=== PATIENT | male | born 1955 | race Caucasian/White ===

== ENCOUNTER → 2017-03-27 | Outpatient (CLI) | payer BC | END | disposition home or self-care (01) | LOC: GMAM 14:25 | PROVIDERS: ATTEND Family Medicine | DX: Z12.5 Encounter for screening for malignant neoplasm of prostate (principal); I10 Essential (primary) hypertension ==

== ENCOUNTER → 2017-11-22 | Outpatient (CLI) | payer SELFPAY | END | disposition home or self-care (01) | LOC: GMAM 10:28 | PROVIDERS: ATTEND Family Medicine | DX: R53.83 Other fatigue (principal) ==

== ENCOUNTER → 2017-12-29 | Outpatient (CLI) | payer OTHER | LOC: GMAM 11:26 | PROVIDERS: ATTEND Family Medicine | DX: E29.1 Testicular hypofunction (principal) ==

== ENCOUNTER → 2018-02-13 | Outpatient (CLI) | payer OTHER | END | disposition home or self-care (01) | LOC: GMAJS 12:02 | PROVIDERS: ATTEND Family Medicine | DX: M54.5 Low back pain (principal) ==

== ENCOUNTER → 2018-02-16 | Outpatient (CLI) | payer OTHER | LOC: GMAM 11:25 | PROVIDERS: ATTEND Family Medicine | DX: R06.02 Shortness of breath (principal) ==

== ENCOUNTER → 2018-05-17 | Outpatient (CLI) | payer OTHER | LOC: GMAM 10:58 | PROVIDERS: ATTEND Family Medicine | DX: F32.89 Other specified depressive episodes (principal); Z12.5 Encounter for screening for malignant neoplasm of prostate ==

== ENCOUNTER → 2018-07-26 | Outpatient (CLI) | payer OTHER | LOC: GMAM 11:07 | PROVIDERS: ATTEND Family Medicine | DX: F32.89 Other specified depressive episodes (principal) ==

== ENCOUNTER → 2018-11-16 | Outpatient (CLI) | payer OTHER | LOC: GMAM 10:34 | PROVIDERS: ATTEND Family Medicine | DX: F32.89 Other specified depressive episodes (principal) ==

== ENCOUNTER → 2019-05-27 | Outpatient (CLI) | payer OTHER | LOC: GMAM 10:33 | PROVIDERS: ATTEND Family Medicine | DX: F32.89 Other specified depressive episodes (principal); I10 Essential (primary) hypertension; Z12.5 Encounter for screening for malignant neoplasm of prostate ==

== ENCOUNTER → 2020-04-01 | Outpatient (CLI) | payer OTHER | LOC: GMAM 11:44 | PROVIDERS: ATTEND Family Medicine | DX: F32.9 Major depressive disorder, single episode, unspecified (principal); I10 Essential (primary) hypertension; Z12.5 Encounter for screening for malignant neoplasm of prostate; R53.83 Other fatigue; E78.2 Mixed hyperlipidemia; Z20.828 Contact with and (suspected) exposure to other viral communicable diseases ==

== ENCOUNTER → 2020-04-15 | Outpatient (CLI) | payer OTHER | LOC: GMAM 06:53 | PROVIDERS: ATTEND Family Medicine | DX: D75.0 Familial erythrocytosis (principal) ==

== ENCOUNTER → 2020-04-28 | Outpatient (CLI) | payer OTHER | LOC: LAB.O 08:21 | PROVIDERS: ATTEND Family Medicine | DX: D45 Polycythemia vera (principal) ==

== ENCOUNTER → 2020-11-25 | Outpatient (CLI) | payer OTHER | LOC: GMAM 15:51 | PROVIDERS: ATTEND Family Medicine | DX: R43.9 Unspecified disturbances of smell and taste (principal); R07.9 Chest pain, unspecified; R51.9 Headache, unspecified; R10.84 Generalized abdominal pain ==

== ENCOUNTER 2020-11-26 12:26 | Emergency (ER) | payer OTHER ==
[2020-11-26 13:00] VITALS: TEMP 98.2
--- NOTE | 2020-11-26 13:23 | RAD ---
EXAM DESCRIPTION: Chest,2 Views CLINICAL HISTORY: mild hypoxia COMPARISON: Previous chest x-ray May 28, 2019 TECHNIQUE: PA/lateral FINDINGS: Right hemidiaphragm is elevated. Prominent ascending aorta. Heart size is normal with normal pulmonary vascularity. No pleural effusion or pneumothorax. Lungs are clear with no consolidating infiltrate. Lateral view shows intact sternum and spurring in the mid to lower T-spine. IMPRESSION: No acute process is identified in the chest. Electronically signed by: Bryan Denton MD 11/26/2020 1:21 PM [facility]
--- NOTE | 2020-11-26 13:25 | RAD ---
EXAM DESCRIPTION: Abdomen Flat Upright CLINICAL HISTORY: 65 years Male, possible constipation, pain COMPARISON: None. FINDINGS: Upright and supine x-ray views of the abdomen. Nonspecific nonobstructive bowel gas pattern. No free air under the diaphragm. Degenerative spurring in the lumbar spine. Calcifications are seen in the region of the upper left renal silhouette and along the medial aspect of the upper right renal silhouette. Differential considerations would include renal stones 3 mm on the right and 8 mm on the left. IMPRESSION: Nonspecific nonobstructive bowel gas pattern. Bilateral calcifications may be renal calculi. Electronically signed by: Bryan Denton MD 11/26/2020 1:23 PM PHD INTERN
[2020-11-26 14:42] VITALS: O2SAT 92
--- NOTE | 2020-11-26 15:08 | ED.PDOC ---
History of Present Illness - General Chief Complaint: Abdominal Pain Stated Complaint: abd pain sent from Dr Estrada office Time Seen by Provider: 11/26/20 12:34 Source: patient Exam Limitations: no limitations - History of Present Illness Initial Comments: The patient is a 65-year-old male presented to the emergency room secondary to constipation primarily. He has not had a good bowel movement in 5 to 6 days according to him. He does have some chronic constipation issues. Additionally the patient does have some polycythemia possibly related to the testosterone use. He had a hemoglobin markedly elevated on his blood draw yesterday. He has had to have therapeutic phlebotomy before. The patient is morbidly obese. On exam today there is actually no point tenderness to palpation over his abdomen. There are no palpable masses. No rebound. No guarding. No palpable incarcerated hernias. The patient has not been throwing up. The patient tested negative for coronavirus last night. Timing/Duration: 1 week Severity: moderate Improving Factors: nothing Worsening Factors: nothing Associated Symptoms: loss of appetite, malaise Allergies/Adverse Reactions: Allergies NO KNOWN ALLERGY Allergy (Verified 11/26/20 13:00) Home Medications: Ambulatory Orders Amlodipine Besylate 20 mg PO DAILY 06/15/20 Ascorbic Acid [Vitamin C] 1,000 mg PO DAILY 06/15/20 Calcium 500 mg PO DAILY 06/15/20 Celecoxib 200 mg PO DAILY 06/15/20 Coenzyme Q10 (Ubidecarenone) [Coq-10] 100 mg PO DAILY 06/15/20 Escitalopram Oxalate 20 mg PO DAILY 06/15/20 Fiber [Fiber Formula] 1 cap PO DAILY 06/15/20 Furosemide 40 mg PO DAILY 06/15/20 Losartan Potassium 100 mg PO BEDTIME 06/15/20 Multiple Vitamins W/ Minerals [Multivitamin Adults 50+] 1 tab PO DAILY 06/15/20 Excelsior-3 Fatty Acids [Excelsior 3] 1 cap PO DAILY 06/15/20 Potassium 99 mg PO DAILY 06/15/20 Rosuvastatin Calcium 40 mg PO BEDTIME 06/15/20 S-Adenosylmethionine [Spencer-E] 400 mg PO DAILY 06/15/20 Testosterone Enanthate 200 mg IM MONTHLY 06/15/20 Review of Systems - Review of Systems Constitutional: States: malaise EENTM: States: no symptoms reported Respiratory: States: no symptoms reported Cardiology: States: no symptoms reported Gastrointestinal/Abdominal: States: other - Generalized abdominal discomfort. No point pain. Genitourinary: States: no symptoms reported Musculoskeletal: States: no symptoms reported Skin: States: no symptoms reported Neurological: States: no symptoms reported Endocrine: States: no symptoms reported Hematologic/Lymphatic: States: no symptoms reported All other Systems: No Change from Baseline Past Medical History (General) - Patient Medical History Hx Seizures: No Hx Stroke: No Hx Asthma: No Hx of COPD: Yes Hx Cardiac Disorders: No Hx Congestive Heart Failure: No Hx Pacemaker: No Hx Hypertension: Yes Hx Diabetes: No Hx Cancer: No Hx MRSA: No - Vaccination History Hx Tetanus, Diphtheria Vaccination: No Hx Influenza Vaccination: Yes Hx Pneumococcal Vaccination: Yes - Social History Hx Tobacco Use: No Hx Alcohol Use: Yes - occ Hx Substance Use: No Hx Substance Use Treatment: No Hx Depression: No Hx Physical Abuse: No Hx Emotional Abuse: No Family Medical History - Family History Mother Family History: Unknown Living Status: Hx Family Asthma: No Hx Family Congestive Heart Failure: No Hx Family Hypertension: Yes Hx Family Stroke: No Hx Cardiac Disease: No Hx Family Diabetes: Yes Hx Family Cancer: Yes - breast cancer Father Family History: Unknown Living Status: Age at (years of age): 62 Hx Family Asthma: No Hx Family Congestive Heart Failure: Yes Hx Family Hypertension: Yes Hx Family Stroke: No Hx Cardiac Disease: Yes Hx Family Diabetes: Yes Hx Family Cancer: No Physical Exam - Physical Exam General Appearance: Alert, Comfortable, No apparent distress Eye Exam: bilateral normal Ears, Nose, Throat: hearing grossly normal, normal pharynx Neck: full range of motion, supple Respiratory: lungs clear, normal breath sounds, no respiratory distress, no accessory muscle use Cardiovascular/Chest: normal peripheral pulses, regular rate, rhythm, no edema - Chronic +1 edema Peripheral Pulses: radial,right: 2+, radial,left: 2+ Gastrointestinal/Abdominal: non tender - Morbidly obese, soft Rectal Exam: deferred Back Exam: no CVA tenderness, no vertebral tenderness Extremity: non-tender, normal inspection, no pedal edema, normal capillary refill Neurologic: cardiovascular surgeon II-XII nml as tested, alert, normal mood/affect, oriented x 3 Skin Exam: normal color Comments: Vital Signs - 24 hr 11/26/20 11/26/20 11/26/20 12:55 13:19 14:00 Temperature 98.2 F 98.2 F Pulse Rate [ 89 92 H 87 Apical] Respiratory 20 20 20 Rate Blood Pressure 143/95 114/82 105/66 [LFA] O2 Sat by Pulse 87 L 92 L 94 L Oximetry 11/26/20 14:41 Temperature Pulse Rate [ 77 Apical] Respiratory 18 Rate Blood Pressure 105/66 [LFA] O2 Sat by Pulse 92 L Oximetry The patient does desaturate when he lies back which is consistent with his history of sleep apnea and morbid obesity. He oxygenates well with sitting up. Progress - Progress Progress: 11/26/20 15:10 The patient is a 65-year-old male presented emergency room secondary to abdominal discomfort that is most likely due to constipation. No elevation of white blood cell count. No point tenderness to indicate an infectious process. No symptoms consistent with obstruction. The patient's polycythemia may be contributing significantly to the abdominal discomfort as well. For this reason he was phlebotomized 450 cc of whole blood. Patient tolerated this well. He does need to have a repeat H&H in 2 weeks to see if further blood needs to be phlebotomized. The patient is going to be written for a gallon of GoLYTELY to use this evening to help get cleaned out. The patient does have significant sleep apnea and does need to continue to use his CPAP rigorously. ER warnings are given. Follow-up with primary care doctor next week. danisha campuzano [phone] - Results/Orders Results/Orders: 2 view chest into the abdomen showed no obvious acute pathology. See reports for details. EKG shows normal axis. Borderline R wave progression. No ST segment or T wave changes indicative of acute ischemia. Normal QT interval. Mild left atrial dilation. Laboratory Tests 11/26/20 11/26/20 11/26/20 12:50 12:50 12:50 WBC 7.0 RBC 6.13 H Hgb 19.2 H Hct 55.8 H MCV 91.1 MCH 31.4 H MCHC 34.5 RDW 13.9 Plt Count 197 MPV 8.0 Absolute Neuts (auto) 4.50 Absolute Lymphs (auto) 1.60 Absolute Monos (auto) 0.70 Absolute Eos (auto) 0.20 Absolute Basos (auto) 0.10 Neutrophils % 64.0 Lymphocytes % 22.8 Monocytes % 10.2 H Eosinophils % 2.3 Basophils % 0.7 PT 10.3 INR 1.04 PTT (SP) 25.0 Sodium 136 Potassium 3.6 Chloride 98 L Carbon Dioxide 27 Anion Gap 14.6 BUN 13 Creatinine 0.88 BUN/Creatinine Ratio 14.8 Random Glucose 97 Serum Osmolality 272.0 L Lactic Acid Calcium 9.1 Magnesium 2.4 Total Bilirubin 1.3 H AST 47 H D ALT 48 Alkaline Phosphatase 65 Creatine Kinase 210 H* D CK-MB (CK-2) 5.0 H* CK-MB (CK-2) % 2.38 Troponin I 0.02 B-Natriuretic Peptide < 15.0 Serum Total Protein 7.9 Albumin 4.2 Globulin 3.7 H Albumin/Globulin Ratio 1.1 Amylase 34 Lipase 20 L TSH 0.62 Urine Color Urine Appearance Urine pH Ur Specific [place] Urine Protein Urine Glucose (UA) Urine Ketones Urine Blood Urine Nitrite Urine Bilirubin Urine Urobilinogen Ur Leukocyte Esterase Urine RBC Urine WBC Ur Epithelial Cells Amorphous Sediment Urine Bacteria Hyaline Casts Urine Mucus Therapeutic Phlebotomy 11/26/20 11/26/20 11/26/20 12:50 13:10 13:50 WBC RBC Hgb Hct MCV MCH MCHC RDW Plt Count MPV Absolute Neuts (auto) Absolute Lymphs (auto) Absolute Monos (auto) Absolute Eos (auto) Absolute Basos (auto) Neutrophils % Lymphocytes % Monocytes % Eosinophils % Basophils % PT INR PTT (SP) Sodium Potassium Chloride Carbon Dioxide Anion Gap BUN Creatinine BUN/Creatinine Ratio Random Glucose Serum Osmolality Lactic Acid 1.1 Calcium Magnesium Total Bilirubin AST ALT Alkaline Phosphatase Creatine Kinase CK-MB (CK-2) CK-MB (CK-2) % Troponin I B-Natriuretic Peptide Serum Total Protein Albumin Globulin Albumin/Globulin Ratio Amylase Lipase TSH Urine Color Yellow Urine Appearance Sl cloudy Urine pH 6.5 Ur Specific [place] 1.020 Urine Protein 100 H Urine Glucose (UA) Negative Urine Ketones 80 H Urine Blood Trace-lysed H Urine Nitrite Negative Urine Bilirubin Moderate Urine Urobilinogen 0.2 Ur Leukocyte Esterase Negative Urine RBC 0-1 Urine WBC 3-5 H Ur Epithelial Cells 0-1 Amorphous Sediment 2+ Urine Bacteria 1+ Hyaline Casts 1-3 Urine Mucus Large Therapeutic Phlebotomy 450 cc blood removed Departure - Departure Clinical Impression: Polycythemia secondary to hypoxia Constipation Qualifiers: Constipation type: unspecified constipation type Qualified Code(s): K59.00 - Constipation, unspecified Disposition: Discharge to Home or Self Care Condition: Fair Departure Forms: ED Discharge - Pt. Copy, Patient Portal Self Enrollment Instructions: DI for Abdominal Pain-Adult, Constipation, Adult (DC) Diet: low fat, low cholesterol Activity: increase activity as tolerated Referrals: Jabier Campuzano MD [Primary Care Provider] - 1-2 Weeks Home Medications: Ambulatory Orders Amlodipine Besylate 20 mg PO DAILY 06/15/20 Ascorbic Acid [Vitamin C] 1,000 mg PO DAILY 06/15/20 Calcium 500 mg PO DAILY 06/15/20 Celecoxib 200 mg PO DAILY 06/15/20 Coenzyme Q10 (Ubidecarenone) [Coq-10] 100 mg PO DAILY 06/15/20 Escitalopram Oxalate 20 mg PO DAILY 06/15/20 Fiber [Fiber Formula] 1 cap PO DAILY 06/15/20 Furosemide 40 mg PO DAILY 06/15/20 Losartan Potassium 100 mg PO BEDTIME 06/15/20 Multiple Vitamins W/ Minerals [Multivitamin Adults 50+] 1 tab PO DAILY 06/15/20 Excelsior-3 Fatty Acids [Excelsior 3] 1 cap PO DAILY 06/15/20 Potassium 99 mg PO DAILY 06/15/20 Rosuvastatin Calcium 40 mg PO BEDTIME 06/15/20 S-Adenosylmethionine [Spencer-E] 400 mg PO DAILY 06/15/20 Testosterone Enanthate 200 mg IM MONTHLY 06/15/20 Additional Instructions: The patient is a 65-year-old male presented emergency room secondary to abdominal discomfort that is most likely due to constipation. No elevation of white blood cell count. No point tenderness to indicate an infectious process. No symptoms consistent with obstruction. The patient's polycythemia may be contributing significantly to the abdominal discomfort as well. For this reason he was phlebotomized 450 cc of whole blood. Patient tolerated this well. He does need to have a repeat H&H in 2 weeks to see if further blood needs to be phlebotomized. The patient is going to be written for a gallon of GoLYTELY to use this evening to help get cleaned out. The patient does have significant sleep apnea and does need to continue to use his CPAP rigorously. ER warnings are given. Follow-up with primary care doctor next week.
[2020-11-26 15:22] VITALS: BP 113/89
== END 2020-11-26 15:22 | disposition home or self-care (01) ==
LOC: ER 12:26
DX: K59.00 Constipation, unspecified (principal); R10.84 Generalized abdominal pain; R53.81 Other malaise; R09.02 Hypoxemia; D75.1 Secondary polycythemia; G47.30 Sleep apnea, unspecified; E66.01 Morbid (severe) obesity due to excess calories; I10 Essential (primary) hypertension; J44.9 Chronic obstructive pulmonary disease, unspecified; Z79.899 Other long term (current) drug therapy; Z68.42 Body mass index [BMI] 45.0-49.9, adult